=== PATIENT | female | born 1990 | race Caucasian/White ===

== ENCOUNTER 2022-08-15 08:22 | Day surgery (SDC) | payer BC ==
[~2022-08-15] VITALS: Ht 154.9 cm; Wt 74.1 kg
[~2022-08-15 08:22] MED LIST: NS 1,000 ML IV ONE
[2022-08-15] MEDS ORDERED: propofoL 200 MG/20 ML VIAL As Ordered ONE ×2 (10:18→10:34)
[2022-08-15] MEDS ORDERED: fentaNYL 100 MCG/2 ML INJECTION As Ordered ONE (10:19)
[2022-08-15 11:15] VITALS: BP 116/73
== END 2022-08-15 11:20 | disposition home or self-care (01) ==
LOC: M OPP 08:22
PROVIDERS: ATTEND Internal Medicine Gastroenterology
DX: D12.2 Benign neoplasm of ascending colon (principal); K63.89 Other specified diseases of intestine; K64.8 Other hemorrhoids; K44.9 Diaphragmatic hernia without obstruction or gangrene; K31.89 Other diseases of stomach and duodenum
CPT/HCPCS: 43239; 45380; 45385; 88305; J3010

== ENCOUNTER 2023-06-18 08:54 | Outpatient (CLI) | payer BC ==
[~2023-06-18] VITALS: Ht 154.9 cm; Wt 81.4 kg
[2023-06-18 09:13] VITALS: BP 119/73
[2023-06-18] MEDS ORDERED: PRENTAB9 PO (09:17)
[2023-06-18] MEDS ORDERED: HOME MED LIST COMPLETE! XX SCH (09:20)
[2023-06-18 10:08] VITALS: BP 112/68
== END 2023-06-18 10:20 | disposition home or self-care (01) ==
LOC: M LDO 08:54
PROVIDERS: ATTEND Advanced Practice Midwife
DX: O36.8120 Decreased fetal movements, second trimester, not applicable or unspecified (principal); Z3A.24 24 weeks gestation of pregnancy
CPT/HCPCS: 59025; G0463